=== PATIENT | male | born 2000 | race Caucasian/White ===

== ENCOUNTER 2019-01-02 19:37 | Emergency (ER) | payer OTHER ==
[~2019-01-02] VITALS: Ht 175.3 cm; Wt 115.7 kg
[2019-01-02 19:54] VITALS: BP 145/105
--- NOTE | 2019-01-02 19:57 | NUR ---
PT TO ER LOBBY, VSS, IN NO DISTRESS.
--- NOTE | 2019-01-02 21:07 | NUR ---
PT AMBULATED TO BED
--- NOTE | 2019-01-02 21:08 | NUR ---
18/M PRESENTS TO ER. WITH C/O ITCHINESS TO EYES AND NOSE X 1WEEK AGO. STATES HIS EYES FEEL LIKE THEY ARE BURNING. 7/10 PAIN LEVEL. HAD BLOODY NOSE TODAY. PT STATES HE HAS A PRODUCTIVE COUGH. TOOK TYLENOL AND ADVIL AT HOME BUT NO RELIEF. NO PAST MEDICAL HISTORY. AMBULATORY.
[2019-01-02 22:00] VITALS: BP 143/71
--- NOTE | 2019-01-02 22:00 | NUR ---
Patient discharged with v/s stable. Written and verbal after care instructions given and explained. Patient alert, oriented and verbalized understanding of instructions. Ambulatory with steady gait. All questions addressed prior to discharge. ID band removed. Patient advised to follow up with PMD. Rx of KETOROLAC TROMETHAMINE 0.5% OPHTHALMIC SOLUTION given. Patient educated on indication of medication including possible reaction and side effects. Opportunity to ask questions provided and answered.
== END 2019-01-02 22:00 | disposition home or self-care (01) ==
LOC: MED 19:37
DX: H10.13 Acute atopic conjunctivitis, bilateral (principal)
CPT/HCPCS: 99283

== ENCOUNTER 2019-05-06 11:14 | Emergency (ER) | payer OTHER ==
[~2019-05-06] VITALS: Ht 172.7 cm; Wt 115.7 kg
--- NOTE | 2019-05-06 11:22 | NUR ---
Patient ambulated to bed 11. RN evaluating patient at bedside.
[2019-05-06 11:25] VITALS: BP 124/68
--- NOTE | 2019-05-06 11:35 | NUR ---
19 Y/O M C/O PAIN 8/10 TO THE LOWER LEFT AND RIGHT ANKLES AFTER GETTING A "BURN" ON HIS SKIN WHEN POURING CEMENT 1 WEEK AGO. PATIENT STATES THAT HE HAS BEEN PUTTING OVER THE COUNTER MEDICATION ON THE AREAS WITH ABRASIONS, HE DOES NOT REMEMBER THE NAME OF THE MEDICATION AND STATES IT HAS NOT HELPED. HX: DENIES PREVIOUS MEDICAL HISTORY
--- NOTE | 2019-05-06 11:37 | NUR ---
it help desk technician at bedside.
--- NOTE | 2019-05-06 11:38 | NUR ---
x-ray at bedside
--- NOTE | 2019-05-06 11:41 | NUR ---
X-RAY AT BEDSIDE.
[2019-05-06] MEDS ORDERED: KETOROLAC 60 MG/2 ML VIAL IM ONE (11:55)
[2019-05-06] MEDS ORDERED: NEOMYCIN/POLYMYXIN/BACITRACIN 0.9 GM/1 PKT TP ONE ×2 (12:05→12:06)
[2019-05-06 12:30] VITALS: BP 124/68
== END 2019-05-06 12:30 | disposition home or self-care (01) ==
LOC: MED 11:14
DX: T25.012A Burn of unspecified degree of left ankle, initial encounter (principal); T25.011A Burn of unspecified degree of right ankle, initial encounter; X08.8XXA Exposure to other specified smoke, fire and flames, initial encounter; Y93.89 Activity, other specified; Y92.89 Other specified places as the place of occurrence of the external cause; Y99.8 Other external cause status
CPT/HCPCS: 73630; 90471; 90715; 96372; 99283; J1885

== ENCOUNTER 2020-01-01 19:02 | Emergency (ER) | payer OTHER ==
[~2020-01-01] VITALS: Ht 170.2 cm; Wt 73.5 kg
[2020-01-01 19:20] VITALS: BP 136/82
--- NOTE | 2020-01-01 19:30 | NUR ---
PT AMBUALTED TO BED 4 WITH STEADY GAIT.
--- NOTE | 2020-01-01 19:30 | NUR ---
19 Y/O MALE PRESENTS TO ER WITH BILATERAL EYE PAIN, AND ITCHING X 2 WEEKS. 5/10 PAIN. PT C/O DRY EYES, PAIN,ITCHING, AND YELLOW BILATERAL EYE EXUDATE UPON AWAKENING IN THE AM. BILATERAL SKIN IRRITATION AROUND LOWER BILATERAL EYE, AND BILATERAL UPPER CHEEK AREA. DENIES VISION CHANGES, OR SUBSTANCE OR PARTICLES GETTING INTO EYES. HEADACHE, N/V/D, SOB. PT STATES HE TOOK ZYRTEC IN THE AM. R/R EQUAL, AND UNLABORED. VSS, BED IN LOW POSITION, SIDE RAIL X 1 WILL CONTINUE TO MONITOR. PT WAS COVID POSITIVE X 2 MONTHS AGO, TESTED 2 WEEKS AGO NO COVID NEGATIVE. NKDA PMH:COVID POS
--- NOTE | 2020-01-01 19:52 | NUR ---
Dr. Olivo examining patient.
[2020-01-01 20:20] VITALS: BP 136/82
--- NOTE | 2020-01-01 20:20 | NUR ---
Patient discharged with v/s stable. Written and verbal after care instructions given and explained. Patient alert, oriented and verbalized understanding of instructions. Ambulatory with steady gait. All questions addressed prior to discharge. ID band removed. Patient advised to follow up with PMD. Rx of FLONASE; NATURAL TEARS EYE LUBRICANT given. Patient educated on indication of medication including possible reaction and side effects. Opportunity to ask questions provided and answered.
== END 2020-01-01 20:20 | disposition home or self-care (01) ==
LOC: MED 19:02
DX: H57.13 Ocular pain, bilateral (principal)
CPT/HCPCS: 99283

== ENCOUNTER 2022-04-02 18:20 | Emergency (ER) | payer OTHER ==
[~2022-04-02] VITALS: Ht 167.6 cm; Wt 115.7 kg
[2022-04-02 18:53] VITALS: BP 119/80
--- NOTE | 2022-04-02 18:59 | NUR ---
EKG AT TRIAGE ROOM.
--- NOTE | 2022-04-02 19:43 | NUR ---
PT TAKEN TO BED 5
--- NOTE | 2022-04-02 19:50 | NUR ---
Pt in bed #5 coming from home c/o chest pain 4/10 non-radiating accompanied with minor dizziness. No sob. Denies n/v. No blurred vision. A&Ox4. VSS. NKA. no known medical conditions. Ambulatory with steady gait. Skin intact. Bed in lowest position.
--- NOTE | 2022-04-02 19:54 | NUR ---
X-Ray at bedside.
--- NOTE | 2022-04-02 19:58 | NUR ---
eligibility technician at bedside.
[2022-04-02 20:10] LABS: BASOPHILS # (AUTO) 0.1 K/uL (0.00-0.22); BASOPHILS % (AUTO) 0.6 % (0.0-2.0); EOSINOPHILS # (AUTO) 0.1 K/uL (0-0.4); EOSINOPHILS % (AUTO) 0.9 % (0.0-4.0); HEMATOCRIT 44.4 % (36-52); HEMOGLOBIN 15.1 g/dL (12.0-18.0); LYMPHOCYTES # (AUTO) 3.8 K/uL (2.0-11.5); LYMPHOCYTES % (AUTO) 29.7 % (20.5-51.1); MEAN CORPUSCULAR HEMOGLOBIN 29 pg (27-31); MEAN CORPUSCULAR HGB CONC 34 g/dL (33-37); MEAN CORPUSCULAR VOLUME 85.3 fL (80-94); MONOCYTES # (AUTO) 1.1 K/uL (0.8-1.0); MONOCYTES % (AUTO) 8.9 % (1.7-9.3); NEUTROPHILS # (AUTO) 7.6 K/uL (1.8-7.7); NEUTROPHILS % (AUTO) 59.9 % (42.2-75.2); PLATELET COUNT (AUTO) 93 K/uL (140-450); RED BLOOD CELL COUNT(AUTO) 5.21 MIL/uL (4.20-6.10); RED CELL DISTRIBUTION WIDTH 13.8 % (11.6-13.7); WHITE BLOOD COUNT (AUTO) 12.6 K/uL (4.8-10.8)
[2022-04-02 20:23] LABS: ANION GAP 14.6 (8-16); CARBON DIOXIDE 25.2 mmol/L (21-32); CREATININE 0.8 mg/dL (0.6-1.3); POTASSIUM 3.8 mmol/L (3.5-5.1)
[2022-04-02] MEDS ORDERED: NAPR-54 PO (21:08)
--- NOTE | 2022-04-02 21:27 | NUR ---
Dr. Pandey examining patient.
--- NOTE | 2022-04-02 21:30 | NUR ---
Discharged pt and educated pt on discharge instructions. Pt verbalized understanding with no further questions. Ambulatory with steady gait. Pt is A&Ox4. VSS. Skin intact. No IV in place.
[2022-04-02 21:32] VITALS: BP 115/77
== END 2022-04-02 21:30 | disposition home or self-care (01) ==
LOC: MED 18:20
DX: R07.89 Other chest pain (principal); R51.9 Headache, unspecified; Z79.899 Other long term (current) drug therapy
CPT/HCPCS: 36415; 71045; 80048; 84484; 85025; 93005; 99285

== ENCOUNTER 2023-03-21 11:38 | Emergency (ER) | payer OTHER ==
[~2023-03-21] VITALS: Ht 175.3 cm; Wt 126.6 kg
[~2023-03-21 11:38] MED LIST: NAPR-54 PO
[2023-03-21 12:09] VITALS: BP 149/79; PULSE 93; RESP 18; TEMP 97.5; O2SAT 100
[2023-03-21] MEDS ORDERED: IBUP-1842 PO (13:26)
[2023-03-21 14:31] VITALS: BP 149/79; PULSE 93; RESP 18; TEMP 97.5; O2SAT 100
== END 2023-03-21 14:32 | disposition home or self-care (01) ==
LOC: MED 11:38
DX: S93.492A Sprain of other ligament of left ankle, initial encounter (principal); X58.XXXA Exposure to other specified factors, initial encounter; Y93.89 Activity, other specified; Y92.89 Other specified places as the place of occurrence of the external cause; Y99.8 Other external cause status
CPT/HCPCS: 73610; 99283

== ENCOUNTER 2023-06-28 17:23 | Emergency (ER) | payer OTHER ==
[~2023-06-28] VITALS: Ht 167.6 cm; Wt 90.7 kg
[~2023-06-28 17:23] MED LIST changes: +IBUP-1842 PO
[2023-06-28 17:57] VITALS: BP 132/78; PULSE 102; RESP 22; TEMP 99; O2SAT 98
[2023-06-28] MEDS ORDERED: MENT7.6L13 PO (18:26)
[2023-06-28] MEDS ORDERED: BPM/473S94 PO (18:26)
[2023-06-28] MEDS ORDERED: IBUP-2213 PO (18:26)
[2023-06-28 20:21] LABS: FLU B ANTIGEN NEGATIVE (NEGATIVE)
[2023-06-28 20:24] LABS: FLU A ANTIGEN POSITIVE (NEGATIVE)
[2023-06-28] MEDS ORDERED: TAM75 PO (20:25)
== END 2023-06-28 18:53 | disposition home or self-care (01) ==
LOC: MED 17:23
DX: J10.1 Influenza due to other identified influenza virus with other respiratory manifestations (principal); Z20.822 Contact with and (suspected) exposure to COVID-19; Z79.899 Other long term (current) drug therapy; Z79.1 Long term (current) use of non-steroidal anti-inflammatories (NSAID)
CPT/HCPCS: 99283